=== PATIENT | male | born 1985 | race Caucasian/White ===

== ENCOUNTER 2017-07-15 13:01 | Emergency (ER) | payer MEDICAID ==
[~2017-07-15] VITALS: Ht 180.3 cm; Wt 127.0 kg
[2017-07-15 13:01] VITALS: BP_SYST 167
[2017-07-15] MEDS ORDERED: KETOROLAC TROMETHAMINE 60 MG/2 ML VIAL IM ONE (14:00)
[2017-07-15 14:26] VITALS: BP_SYST 164
== END 2017-07-15 14:25 | disposition home or self-care (01) ==
LOC: SED 13:01
DX: R07.89 Other chest pain (principal); R05 Cough; R19.7 Diarrhea, unspecified; F17.200 Nicotine dependence, unspecified, uncomplicated; Z88.0 Allergy status to penicillin
CPT/HCPCS: 71020; 96372; 99284; J1885